=== PATIENT | female | born 1995 | race Caucasian/White ===

== ENCOUNTER 2023-07-02 13:35 | Emergency (ER) | payer OTHER ==
[~2023-07-02] VITALS: Ht 142.2 cm; Wt 68.0 kg
[2023-07-02 15:14] LABS: HEMATOCRIT 37.3 % (36.0-45.00); HEMOGLOBIN 12.1 g/dL (12.0-15.00); MEAN CELL VOLUME 84.7 fL (80.00-100.00); MEAN CORPUSCULAR HEMOGLOBIN 27.5 pg (27.00-32.0); MEAN CORPUSCULAR HGB CONC 32.4 g/dl (32.0-36.0); PLATELET COUNT 345 K/uL (150-450); RED BLOOD COUNT 4.41 M/uL (4.00-6.00); RED CELL DISTRIBUTION WIDTH 14.5 % (11.5-14.5)
[2023-07-02 15:49] LABS: ALBUMIN 3.5 gm/dL (3.4-5.0); BILIRUBIN TOTAL 1.13 mg/dL (0.3-1.2); CREATININE SERUM 0.54 mg/dL (0.55-1.02); GFR 132.56; GLOBULINA 3.3 G/DL (2.4-3.5); POTASSIUM 3.87 mEq/L (3.5-5.1); TOTAL PROTEIN 6.8 gm/dL (6.4-8.2)
== END 2023-07-02 16:49 | disposition home or self-care (01) ==
LOC: ER 13:35
PROVIDERS: General Practice
DX: R51.9 Headache, unspecified (principal); Z20.822 Contact with and (suspected) exposure to COVID-19; Z88.0 Allergy status to penicillin